=== PATIENT | female | born 1995 | race Caucasian/White ===

== ENCOUNTER 2018-06-24 15:11 | Emergency (ER) | payer BC ==
[2018-06-24] MEDS ORDERED: Ibuprofen 800 MG TAB ONE (16:18)
== END 2018-06-24 16:30 | disposition home or self-care (01) ==
LOC: ERS 15:11
DX: M54.2 Cervicalgia (principal); V43.62XA Car passenger injured in collision with other type car in traffic accident, initial encounter
CPT/HCPCS: 99283